=== PATIENT | female | born 1950 | race Caucasian/White ===

== ENCOUNTER 2016-10-22 15:46 | Day surgery (SDC) | payer MEDICARE, OTHER ==
[~2016-10-22] VITALS: Ht 162.6 cm; Wt 84.3 kg
[~2016-10-22 15:46] MED LIST: BUPR100T6 PO; CALC0.2511 PO; ENAL20TA PO; OMEP20CA16 PO; SIMV20TA2 PO; VIT1TABL46 PO
[2016-10-22 16:13] VITALS: Ht 162.6 cm; Wt 84.3 kg
[2016-10-22 16:37] VITALS: BP 147/78; PULSE 64; RESP 22
[2016-10-22] MEDS ORDERED: PROPOFOL 40 ML ONE (17:00)
--- NOTE | 2016-10-22 17:14 | OPPN ---
Date/Time of Note Date/Time of Note DATE: 10/22/16 TIME: 17:12 Operative Report Preoperative Diagnosis Abdominal pain Change in bowel habit Postoperative Diagnosis Hiatal hernia Gastroesophageal reflux disease Gastritis Gastric mucosal biopsies were taken for H. pylori test Internal hemorrhoids No colon neoplasm is identified Operation/Procedure Performed Esophagogastroduodenoscopy and biopsy Colonoscopy Provider: FELA MONROY MD Anesthesia Type: MAC Estimated blood loss: none Transfusion Required: no Specimens Gastric mucosal biopsy Grafts/Implants: none Complications: no FELA MONROY MD Oct 22, 2016 17:14
[2016-10-22 17:30] VITALS: BP 126/76; PULSE 62; RESP 14
--- NOTE | 2016-10-22 23:46 | GILP ---
DATE OF PROCEDURE: 10/22/2016 PROCEDURE PERFORMED: 1. Esophagogastroduodenoscopy and biopsy. 2. Colonoscopy. SURGEON: Maykel Rueda MD. PREOPERATIVE DIAGNOSES: 1. Abdominal pain. 2. Change in bowel habits. POSTOPERATIVE DIAGNOSES: 1. Hiatal hernia. 2. Gastroesophageal reflux disease. 3. Status post fundoplication. 4. Gastritis. 5. Gastric mucosal biopsies were taken for Helicobacter pylori test. 6. Colonoscopy all the way to the cecum. 7. Internal hemorrhoids. 8. No colon neoplasm was identified. INDICATION: The patient is a 66-year-old female patient, who had upper abdominal pain not responding to therapy. She also noticed change in the bowel habits. She never had a screening colonoscopy. The patient was scheduled for endoscopy and colonoscopy for further evaluation. The procedures and possible complications were well explained to the patient. She understood and consented to the procedures. DESCRIPTION OF PROCEDURE: Under influence of anesthesia, the gastroscope was carefully introduced into the esophagus. Under direct vision it was advanced to the stomach, into the pylorus, into the duodenal bulb, and descending duodenum. FINDINGS: 1. Esophagus. The patient had hiatal hernia and gastroesophageal reflux disease. 2. Stomach. She had gastritis with erosions. Gastric mucosal biopsies were taken for Helicobacter pylori test. 3. Duodenum was normal. The colonoscope was carefully introduced in the rectum. Under direct vision it was advanced all the way to the cecum. FINDINGS: The patient had internal hemorrhoids. No colon neoplasm was identified. She tolerated the procedures very well. There were no complication from the procedures. At the end of procedures, she was awake with stable vital signs and she was discharged home in care of her family. IMPRESSION: Please see postop diagnoses. PLAN: 1. Continue omeprazole. 2. Add Zantac 300 mg p.o. nightly. 3. Screening colonoscopy in 10 years. Dictated By: MD TOR Garcia/matt/brooke /Document#: [id number]
== END 2016-10-22 17:21 | disposition home or self-care (01) ==
LOC: GIL 15:46
PROVIDERS: ATTEND Internal Medicine Gastroenterology
DX: R19.4 Change in bowel habit (principal); K44.9 Diaphragmatic hernia without obstruction or gangrene; K21.9 Gastro-esophageal reflux disease without esophagitis; K29.70 Gastritis, unspecified, without bleeding; K64.8 Other hemorrhoids; I10 Essential (primary) hypertension; E78.5 Hyperlipidemia, unspecified
CPT/HCPCS: 87081